=== PATIENT | female | born 1970 | race Caucasian/White ===

== ENCOUNTER 2022-07-20 09:14 | Outpatient (CLI) | payer OTHER, SELFPAY ==
[2022-07-20 15:13] LABS: Albumin* 4.9 g/dL (3.3-5.0); Chloride* 104 mmol/L (96-114); Sodium* 139 mmol/L (135-149)
[2022-07-20 15:14] LABS: Potassium* 4.3 mmol/L (3.6-5.1)
[2022-07-20 15:15] LABS: Cholesterol* 208 mg/dL (90-199); Creatinine* 0.7 mg/dL (0.5-1.5); Estimated Glomerular Filt Rate 105 ml/min
[2022-07-20 15:16] LABS: Alanine Aminotransferase* 23 U/L (4-35); Alkaline Phosphatase* 93 U/L (40-150); Aspartate Amino Transferase* 22 U/L (12-35); Bilirubin Total* 0.6 mg/dL (0.1-1.5); Blood Urea Nitrogen* 13 mg/dL (7-30); Calcium* 10.1 mg/dL (8.4-10.6); Carbon Dioxide* 24 mmol/L (20-32); Glucose* 100 mg/dL (60-115); Triglycerides* 146 mg/dL (40-149)
[2022-07-20 15:17] LABS: HDL Cholesterol* 66 mg/dL (>=50); LDL Cholesterol Calculated 113 mg/dL (<100)
== END 2022-07-20 09:15 | disposition home or self-care (01) ==
PROVIDERS: PCP Family Medicine; Visit Provider Nurse Practitioner Family
DX: Z13.220 Encounter for screening for lipoid disorders (principal); I10 Essential (primary) hypertension
CPT/HCPCS: 36415; 80053; 80061

== ENCOUNTER 2022-08-03 08:27 | Outpatient (CLI) | payer OTHER, SELFPAY ==
--- OUTSIDE RECORDS SUMMARY | 2022-08-03 08:29 | XMS_ITS | Clinical Summary ---
:1970 Author Organization [facility] [place] [address] Care Team Providers Name Role Phone Clinic, [facility] [place] Primary Care Provider [phone] Allergies Active Allergy Reactions Severity Noted Date Comments Lisinopril Rash 02/13/2016 A few days afte r starting med. Adhesive Tape Rash 09/10/2006 Medications Medication Sig Dispensed Refills Start Date End Date Status CLARITIN 10 MG TAB take 1 tablet 0 02/22/2007 Active (10mg) by oral route once daily DIPHENHYDRAMINE 50 MG take 1 capsule 0 02/22/2007 Active CAP (50mg) by oral route every 4-6 hours as needed cholecalciferol Take 1 capsule by 0 02/20/2016 Active (VITAMIN D) 1,000 unit mouth once daily. capsule fluticasone (50 mcg per Inhale 1 [place] 1 Bottle 11 08/03/2019 Active actuation) nasal into both solution nostrils once (FLONASE)Indications: daily. Hypertension, unspecified type metroNIDAZOLE Apply topically 45 g 3 05/08/2020 Active (METROGEL) 0.75 % to affected gelIndications: Rosacea area(s) 2 times daily. mometasone (Asmanex Inhale 1 Puff by 1 Each 0 05/21/2021 Active Twisthaler) 220 mcg/ mouth 2 times actuation (30) daily. inhalerIndications: Mild intermittent asthma without complication losartan (COZAAR) 100 Take 1 Tablet 30 Tablet 0 05/20/2021 Active mg tabletIndications: (100 mg) by mouth Hypertension, once daily. unspecified type albuterol HFA (PRO-AIR; INHALE 1 PUFF BY 54 g 0 1 Active VENTOLIN; PROVENTIL) 90 MOUTH EVERY 4 mcg/actuation HOURS IF NEEDED inhalerIndications: Asthma, unspecified asthma severity, unspecified whether complicated, unspecified whether persistent Active Problems Problem Noted Date OSWALDO I (cervical intraepithelial neoplasia I) 7 Overview: 02/2009 ASCUS/HPV positive 04/2009 [place]: OSWALDO 1 06/2012 ASCUS/HPV positive 07/2012 [place]: Suggestive of HPV 08/2013 NIL/HPV negative 11/2014 NIL/HPV positive 01/2016 ASCUS/HPV positive 01/2016 [place]: suggestive of OSWALDO 1 01/2017 ASCUS/HPV negative 02/2017 [place]: suggestive of OSWALDO 1 02/2018 Pap and HPV negative Plan: Repeat Pap/HPV testing in 3 year ( DUE 02/2021) Family hx colonic polyps 05/11/2016 Overview: Mom age 68 To start at 50 BMI 36.0-36.9,adult 03/05/2013 Overview: Formatting of this note is dif ferent from the original. Is using my fitness pal. Has lost 100 po unds again. Has been stable since 201602/17/2018 Wt Readings from Last 5 Encounters: 02/17/18 99.2 kg (218 lb 11.2 oz) 03/18/17 97.1 kg (214 lb) 02/15/17 98.9 kg (218 lb) 11/16/16 104.8 kg (231 lb) 08/03/16 115.2 kg (254 lb) Keeping calories under 2,000 for mainten ance on MY FITNESS PAL Exercise 2-3 days per week HTN (hypertension) 06/19/2007 Overview: Formatting of this note is dif ferent from the original. BP Readings from Last 5 Encounters: 11/01/18 138/94 03/14/18 116/72 02/17/18 132/74 03/18/17 132/86 02/15/17 116/80 taking medications as instructed, no me dication side effects noted, no TIA's, no chest pain on exertion, no dyspnea on exertion, no swelling of ankles.denies dizziness/headache/visual changes/cough/ort/shortness of breath/abdominal discomfort/edema SODIUM Date Value Ref Range Status 02/17/2018 140 135 - 145 mmol/L Final POTASSIUM Date Value Ref Range Status 02/17/2018 3.9 3.5 - 5.0 mmol/L Final CHLORIDE Date Value Ref Range Status 02/17/2018 108 98 - 110 mmol/L Final CO2,TOTAL Date Value Ref Range Status 02/17/2018 21 21 - 31 mmol/L Final ANION GAP Date Value Ref Range Status 02/17/2018 11 5 - 18 Final GLUCOSE Date Value Ref Range Status 02/17/2018 88 65 - 100 mg/dL Final BUN Date Value Ref Range Status 02/17/2018 17 8 - 25 mg/dL Final CREATININE Date Value Ref Range Status 02/17/2018 0.80 0.57 - 1.11 mg/dL Final BUN/CREAT RATIO Date Value Ref Range Status 02/17/2018 21 (H) 10 - 20 Final CALCIUM Date Value Ref Range Status 02/17/2018 9.7 8.5 - 10.5 mg/dL Final 11/01/2018 We tried lowering medications a nd she did have an increase. Will now add HYRDROCHLOROTHIAZIDE 12.5 mg daily and have her check a Potassium in [place] in 1 month. Asthma, moderate persistent 02/22/2007 Overview: Formatting of this note is dif ferent from the original. She thought she would be much better wit h weight loss. Not exercise related. She will have them when she is singing. Come on suddenly. The inhaler always helps. Dislikes her steroid inhaler. She did use it this winter and weaned off after thr ee weeks. They always used to be a coughing fit, and then could not get a breath. Now she will go to take a deep breath and nothing goes in. LIKES THE ASMANEX Neal etimes needs to use inhaler 2-3 times in a day . Triggers: Pollens somewhat Molds always Tree molds in spring and fa ll Summer and winter better. Extreme stress Somewhat upper respiratory infection Super cold a problem Needs albuterol 1 x in last month. Using asmanex once daily Asthma Data 03/14/2018 11/01/2018 DATE COMPLETED (Timeframe for the follow ing questions is the past 4 weeks) 03/14/2018 11/01/2018 1. Did you miss any work, school, or nor mal daily activities because of your asthma? 0-No 0-No 2. Did you wake up at night because of y our asthma? 0-No 0-No 3. Did you believe that your asthma was well controlled? 1-No 0-Yes 4. Do you use an inhaler for quick relie f from asthma symptoms? Yes Yes IF YES, what was the greatest number of puffs in 1 day you took with the inhaler? 1- 9 to 12 0- 1 to 4 ATAQ Score 2 0 In the past 12 months, number of asthma- related emergency department visits not requiring hospitalization? 0 0 In the past 12 months, number of hospita lizations requiring an overnight stay due to asthma? 0 0 Some recent data might be hidden 11/01/2018 will increase asmanex to 1 puff twice daily. Will want an update from her in a month. ATAQ 1 today Polycystic ovaries 02/22/2007 Allergic rhinitis, cause unspecified 02/22/2007 Overview: See asthma 11/01/2018 will add singulair Resolved Problems Problem Noted Date Resolved Date History of abnormal cervical Pap smear 09/25/2013 0 03/23/2017 Overview: 07/2012 Colposcopy neg ecc and hpv skinner e only on biopsy, Pap smear ascus positive HPV; 08/2013 Pap neg, HPV neg Plan: cotest 2016 Pap smear ascus, HPV positive Colpo: biopsy not quite cin1, ecc neg PL AN: cotest 1 year Unspecified essential hypertension 06/19/200703/18 Morbid obesity 02/22/2007 03/18/2009 Routine gynecological examination 02/22/20072018 Other disorders of iron metabolism 02/22/200707/19 Overview: needs screen, father has this. Inactive ICD-9 code replaced with correc t active ICD-9. Display name retained. Immunizations Name Administration Dates Next Due Hepatitis A (Adult) 05/11/2016, 07/06/2007 Hepatitis B (Adult) 05/11/2016, 07/06/2007, 12/14/1996 Influenza, IIV3 (Age >=3 years) 09/14/2013, 07/28/2012, 09/24 Influenza, IIV4 08/03/2019, 11/01/2018, 08/03/2016, 02/10/2016, 11/29/2014 MMR 08/28/1995 Td (Age >=7 Years) 10/15/1999 Tdap 02/15/2017, 02/22/2007 Family History Medical History Relation Name Comments Cancer Father skin/throat Diabetes Father Heart Disease Father ASHD Hypertension Father Other Father hemachromatosis; pt is neg for genetic mut Stroke Father Cancer Maternal Grandmother ovarian Cancer-breast Maternal Grandmother Asthma Mother Cancer Mother precancer in ova ry Hypertension Mother Melanoma Mother Heart Disease Paternal Grandfather ASHD Diabetes Paternal Grandmother Good Health Sister Melanoma Sister Relation Name Status Comments Father Maternal Grandmother Mother Paternal Grandfather Paternal Grandmother Sister Social History Tobacco Use Types Packs/Day Years Used Date Never Smoker Smokeless Tobacco: Never Used Comments: non smoker Alcohol Use Standard Drinks/Week Comments Yes 1.7 (1 standard drink = 0.6 oz pure occa sional 2-3 drinks 1-2 times per alcohol) month Alcohol Habits Answer Date Recorded How often do you have a drink Not asked containing alcohol? How many drinks containing alcohol Not asked do you have on a typical day when you are drinking? How often do you have six or more Not asked drinks on one occasion? Comment: occasional 2-3 drinks 1-2 times per 01/23 month Sex Assigned at Date Recorded Not on file Obstetrics History Para Term AB IAB SAB Ectopic Multiple Living Live Births 2 2 1 1 2 Date Outcome GA Total Labor/2nd/3rd Weight Sex Delivery Anes PTL Erica A 1 A5 Name Clin Labor Term Last Filed Vital Signs Vital Sign Reading Time Taken Comments Blood Pressure 132/90 05/29/2020 9:39 AM CDT Pulse 78 05/29/2020 9:39 AM CDT Temperature 36.7 ??C (98.1 ??F) 08/03/2019 8:17 AM CDT Respiratory Rate 16 01/05/2019 9:12 AM CDT Oxygen Saturation 96% 05/29/2020 9:39 AM CDT Inhaled Oxygen Concentration - - Weight 117.6 kg (259 lb 3.2 oz) 05/29/2020 9:39 AM CDT Height 170.5 cm (5' 7.13) 05/08/2020 8:41 AM CDT Body Mass Index 40.44 05/08/2020 8:41 AM CDT Plan of Treatment Health Maintenance Due Date Last Done Comments COVID-19 vaccine series (#1) 1970 Hepatitis C screening for age 0402/01/1989 18-79 Colonoscopy through age 75 02/02/2016 Mammogram for age 45-75 02/24/2018 02/24/2017, 02/10/2016 Depression screening for age 12+ 08/03/2020 08/03/2019, , 02/17/2018, Additional history exists Zoster (shingles) series for age 0402/01/2021 50+ (1 of 2) Pap test for age 21-65 03/14/2021 03/14/2018, 03/14/2018, 02/15/2017, Additional history exists BMI (ht and wt on same day) for 05/08/2021 05/08/2020, 07/24, age 18+ 01/05/2019, Additional history exists Influenza for age 50-64 06/24/2022 08/03/2019, 11/01/2018, 08/03/2016, Additional history exists Lipids for age 45-75 05/08/2025 05/08/2020, 08/03/2019, 11/01/2018, Additional history exists Tetanus booster 02/15/2027 02/15/2017, 02/22/2007, 10/15/1999 Tdap Completed 02/15/2017, 02/22/2007 Medical Devices Implanted Type Area It Security Consulting Director Device Shelf Model / Identifier Expiration Serial / Lot Date Sys Lap Band Std Access Port I - [id number] Stomach Inspire Medical [id number] / Implanted: Qty: 1 on 08/09/2007 at [facility] [employer] [facility] / [id number] Results Not on filefrom Last 3 Months Insurance Payer Benefit Plan / Subscriber ID Effective Dates Phone Addre ss Type Group [facility] [id number] 2019-Present [address] [facility] [place] [place] [address] (Home) [place] [phone] (Work) Pavithra Ramos Personal/Family Self 1970 [address] ([address]) [phone] (Work) [place] [phone] Advance Directives Latest Code Status on File Code Status Date Activated Date Inactivated Comments Full Code 08/09/2007 5:16 AM 08/09/2007 9:41 PM Care Teams Channel Manager Relationship Specialty Start Date End Date [facility] PCP - General 06/28/21 [address] [place] [id number]
[2022-08-03 13:46] LABS: Cholesterol* 194 mg/dL (90-199); HDL Cholesterol* 61 mg/dL (>=50); LDL Cholesterol Calculated 112 mg/dL (<100); Triglycerides* 103 mg/dL (40-149)
== END 2022-08-03 08:28 | disposition home or self-care (01) ==
LOC: KYNREF 08:27
PROVIDERS: PCP Family Medicine; Visit Provider Nurse Practitioner Family
DX: Z01.419 Encounter for gynecological examination (general) (routine) without abnormal findings (principal); Z13.6 Encounter for screening for cardiovascular disorders
CPT/HCPCS: 36415; 80061

== ENCOUNTER 2022-11-02 08:48 | Outpatient (CLI) | payer OTHER, SELFPAY ==
--- NOTE | 2022-11-02 09:15 | CRLHL7_ITS ---
For Patients: As a result of the Century Cures Act, medical imaging exams and procedure reports are released immediately into your electronic medical record. You may view this report before your referring provider. If you have questions, please contact your health care provider. BILATERAL SCREENING MAMMOGRAM WITH COMPUTER-AIDED DETECTION TECHNIQUE: CC and MLO views were obtained. These mammographic images have been obtained using full-field digital technique. These mammographic images were interpreted with the benefit of computer-aided detection. COMPARISON FILM: 02/24/17. FINDINGS: There are scattered areas of fibroglandular density IMPRESSION: There is no radiographic evidence for malignancy. ASSESSMENT: BI-RADS Category 2: Benign RECOMMENDATION: Routine screening mammogram in 1 year. A lay language report of this examination will be provided to the patient. Mc Szymanski M.D. Diagnostic Radiologist [email or web address] JT/Dictated by: Mc Szymanski MD @ 11/08/2022 10:54:00 AM (Electronically Signed)
== END 2022-11-02 08:49 | disposition home or self-care (01) ==
LOC: MAMMO 08:49
PROVIDERS: PCP Nurse Practitioner Family; Visit Provider Nurse Practitioner Family
DX: Z12.31 Encounter for screening mammogram for malignant neoplasm of breast (principal)
CPT/HCPCS: 77063; 77067

== ENCOUNTER 2023-04-11 14:35 | Outpatient (CLI) | payer OTHER, SELFPAY ==
--- NOTE | 2023-04-11 15:00 | CRLHL7_ITS ---
For Patients: As a result of the Century Cures Act, medical imaging exams and procedure reports are released immediately into your electronic medical record. You may view this report before your referring provider. If you have questions, please contact your health care provider. INDICATION: Left leg swelling TECHNIQUE: Ultrasound venous duplex lower left extremity. Compression venous exam was performed using villagran-scale, color Doppler, and spectral Doppler analysis. COMPARISON: None. FINDINGS: Sonographic imaging demonstrates the left common femoral, deep femoral, superficial femoral, popliteal, posterior tibial and greater saphenous and the contralateral right common femoral veins to be fully compressible with normal color Doppler blood flow. IMPRESSION: Normal left lower extremity venous ultrasound, no sign of deep venous thrombosis. Dictated by Martínez Ureña MD @ 04/11/2023 3:48:12 PM (Electronically Signed)
== END 2023-04-11 14:36 | disposition home or self-care (01) ==
PROVIDERS: PCP Nurse Practitioner Family; Visit Provider Nurse Practitioner Family
DX: M79.89 Other specified soft tissue disorders (principal)
CPT/HCPCS: 80048; 83540; 83550; 85025; 93971

== ENCOUNTER 2023-05-09 10:54 | Outpatient (CLI) | payer OTHER, SELFPAY | END 2023-05-09 10:55 | disposition home or self-care (01) | PROVIDERS: PCP Nurse Practitioner Family; Visit Provider Nurse Practitioner Family | DX: E87.6 Hypokalemia (principal); Z83.49 Family history of other endocrine, nutritional and metabolic diseases | CPT/HCPCS: 84132 ==

== ENCOUNTER 2023-08-15 08:31 | Outpatient (CLI) | payer OTHER, SELFPAY | END 2023-08-15 08:32 | disposition home or self-care (01) | PROVIDERS: PCP Nurse Practitioner Family; Visit Provider Nurse Practitioner Family | DX: Z00.00 Encounter for general adult medical examination without abnormal findings (principal); I10 Essential (primary) hypertension; Z13.0 Encounter for screening for diseases of the blood and blood-forming organs and certain disorders involving the immune mechanism; Z51.81 Encounter for therapeutic drug level monitoring | CPT/HCPCS: 80053; 85025 ==

== ENCOUNTER 2024-03-05 08:20 | Outpatient (CLI) | payer OTHER, SELFPAY ==
--- OUTSIDE RECORDS SUMMARY | 2024-03-08 12:46 | XMS_ITS | Clinical Summary ---
Author Name Unknown Organization [facility] Address [place], [place] [address] Care Team Providers Care Desolderer Name Role Phone Clinic, [facility] Pro vider Allergies Active Allergy Reactions Criticality Noted Date Comments Lisinopril Rash 02/13/2016 A few days after starting med. Adhesive Tape Rash 09/10/2006 Medications Medication Sig Dispensed Refills Start Date End Date Status CLARITIN 10 MG TAB take 1 tablet (10mg) by oral route once daily 0 02/22/2007 Active DIPHENHYDRAMINE 50 MG CAP take 1 capsule (50mg) by oral route every 4-6 hours as needed 0 02/22/2007 Active cholecalciferol (VITAMIN D) 1,000 unit capsule Take 1 capsule by mouth once daily. 0 02/20/2016 Active fluticasone (50 mcg per actuation) nasal solution (FLONASE)Indications: Hypertension, unspecified type Inhale 1 [place] into both nostrils once daily. 1 Bottle 11 08/03/2019 Active metroNIDAZOLE (METROGEL) 0.75 % gelIndications:Rosace a Apply topically to affected area(s) 2 times daily. 45 g 3 05/08/2020 Active mometasone (Asmanex Twisthaler) 220 mcg/ actuation (30) inhalerIndications:Mi ld intermittent asthma without complication Inhale 1 Puff by mouth 2 times daily. 1 Each 05/21/2021 Active losartan (COZAAR) 100 mg tabletIndications:Hyp ertension, unspecified type Take 1 Tablet (100 mg) by mouth once daily. 30 Tablet 05/20/2021 Active albuterol HFA (PRO-AIR; VENTOLIN; PROVENTIL) 90 mcg/actuation inhalerIndications:As thma, unspecified asthma severity, unspecified whether complicated, unspecified whether persistent INHALE 1 PUFF BY MOUTH EVERY 4 HOURS IF NEEDED 54 g 05/18/2021 Active Active Problems Problem Noted Date Diagnosed Date OSWALDO I (cervical intraepithelial neoplasia I) 10/2016 Overview: 02/2009 ASCUS/HPV positive 04/2009 [place]: OSWALDO 1 06/2012 ASCUS/HPV positive 07/2012 [place]: Suggestive of HPV 08/2013 NIL/HPV negative 11/2014 NIL/HPV positive 01/2016 ASCUS/HPV positive 01/2016 [place]: suggestive of OSWALDO 1 01/2017 ASCUS/HPV negative 02/2017 [place]: suggestive of OSWALDO 1 02/2018 Pap and HPV negative Plan: Repeat Pap/HPV testing in 3 year (DUE 02/2021) Family hx colonic polyps 05/11/2016 Overview: Mom age 68 To start at 50 BMI 36.0-36.9,adult 03/05/2013 Overview: Is using my fitness pal. Has lost 100 pounds again. Has been stable since 201602/17/2018 Wt Readings from Last 5 Encounters: 02/17/18 99.2 kg (218 lb 11.2 oz) 03/18/17 97.1 kg (214 lb) 02/15/17 98.9 kg (218 lb) 11/16/16 104.8 kg (231 lb) 08/03/16 115.2 kg (254 lb) Keeping calories under 2,000 for maintenance on [employer] Exercise 2-3 days per week HTN (hypertension) 06/19/2007 Overview: BP Readings from Last 5 Encounters: 11/01/18 138/94 03/14/18 116/72 02/17/18 132/74 03/18/17 132/86 02/15/17 116/80 taking medications as instructed, no medication side effects noted, no TIA's, no chest [...] mg/dL Final 11/01/2018 We tried lowering medications and she did have an increase. Will now add HYRDROCHLOROTHIAZIDE 12.5 mg daily and have her check a Potassium in [place] in 1 month. Asthma, moderate persistent 02/22/2007 Overview: She thought she would be much better with weight loss. Not exercise related. She will have them when she is singing. Come on suddenly. The inhaler always helps. Dislikes her steroid inhaler. She did use it this winter and weaned off after three weeks. They always used to be a coughing fit, and then could not get a breath. Now she will go to take a deep breath and nothing goes in. LIKES THE ASMANEX Sometimes needs to use inhaler 2-3 times in a day . Triggers: Pollens somewhat Molds always Tree molds in spring and fall Summer and winter better. Extreme stress Somewhat upper respiratory infection Super cold a problem Needs albuterol 1 x in last month. Using asmanex once daily Asthma Data 03/14/2018 11/01/2018 DATE COMPLETED (Timeframe for the following questions is the past 4 weeks) 03/14/2018 11/01/2018 1. Did you miss any work, school, or normal daily activities because of your asthma? 0-No 0-No 2. Did you wake up at night because of your asthma? 0-No 0-No 3. Did you believe that your asthma was well controlled? 1-No 0-Yes 4. Do you use an inhaler for quick relief from asthma symptoms? Yes Yes IF YES, what was the greatest number of puffs in 1 day you took with the inhaler? 1- 9 to 12 0- 1 to 4 ATAQ Score 2 0 In the past 12 months, number of asthma-related emergency department visits not requiring hospitalization? 0 0 In the past 12 months, number of hospitalizations requiring an overnight stay due to asthma? 0 0 Some recent data might be hidden 11/01/2018 will increase asmanex to 1 puff twice daily. Will want an update from her in a month. ATAQ 1 today Polycystic ovaries 02/22/2007 Allergic rhinitis, cause unspecified 02/22/2007 Overview: See asthma 11/01/2018 will add singulair Resolved Problems Problem Noted Date Diagnosed Date Resolved Date History of abnormal cervical Pap smear 09/25/2013 03/23/2017 Overview: 07/2012 Colposcopy neg ecc and hpv change only on biopsy, Pap smear ascus positive HPV; 08/2013 Pap neg, HPV neg Plan: cotest 2015 Pap smear ascus, HPV positive Colpo: biopsy not quite cin1, ecc neg PLAN: cotest 1 year Unspecified essential hypertension 06/19/2007 03/18/2009 Morbid obesity 02/22/2007 03/18/2009 Routine gynecological examination 02/22/2007 11/01/2018 Other disorders of iron metabolism 02/22/2007 07/19/2007 Overview: needs screen, father has this. Inactive ICD-9 code replaced with correct active ICD-9. Display name retained. Immunizations Name Administration Dates Next Due Hepatitis A (Adult) 05/11/2016,07/06/2007 Hepatitis B (Adult) 05/11/2016,07/06/2007,1996 Influenza, IIV3 (Age >=3 years) 09/14/2013,07/28,10/15/1999 Influenza, IIV4 08/03/2019, 9,08/03/2016,02/10/2016, 11/29/2014 MMR 08/28/1995 Td (Age >=7 Years) 10/15/1999 Tdap 02/15/2017,02/22/2007 Family History Medical History Relation Name Comments Cancer Father skin/throat Diabetes Father Heart Disease Father ASHD Hypertension Father Other Father hemachromatosis ; pt is neg for genetic mut Stroke Father Cancer Maternal Grandmother ovarian Cancer-breast Maternal Grandmother Asthma Mother Cancer Mother precancer in ov butch Hypertension Mother Melanoma Mother Heart Disease Paternal Grandfather ASHD Diabetes Paternal Grandmother Good Health Sister Melanoma Sister Relation Name Status Comments Father Maternal Grandmother Mother Paternal Grandfather Paternal Grandmother Sister Social History Tobacco Use Types Packs/Day Years Used Date Smoking Tobacco: Never Smokeless Tobacco: Never Comments:non smoker Alcohol Use Standard Drinks/Week Comments Yes 1.7 (1 standard drin k = 0.6 oz pure alcohol) occasional 2-3 drinks 1-2 times per month PHQ-2 Answer Date Recorded PHQ-2 Score 0 08/03/2019 Social Connections Answer Date Recorded Frequency of Communication with Friends and Fami ly Not on file 10/24/2021 Financial Resource Strain Answer Date R ecorded Difficulty of Paying Living Expenses Not on file 10/24/2021 Difficulty of Paying Living Expenses Not on file 10/24/2021 Sex and Gender Information Value Date Recorded Sex Assigned at Not on file Gender Identity Not on file Sexual Orientation Not on file Obstetrics History Para Term AB IAB SAB Ectopic Multiple Livin g Live Births 2 2 1 1 2 Date Outcome GA Total Labor Labor/2nd/3rd Weight Sex Delivery Anes PTL Erica A1 A5 Name Cl in Term Last Filed Vital Signs Vital Sign Reading Time Taken Comments Blood Pressure 132/90 05/29/2020 9:39 AM CDT Pulse 78 05/29/2020 9:39 AM CDT Temperature 36.7 ??C (98.1 ??F) 08/03/2019 8:17 AM CD T Respiratory Rate 16 01/05/2019 9:12 AM CDT Oxygen Saturation 96% 05/29/2020 9:39 AM CDT Inhaled Oxygen Concentration - - Weight 117.6 kg (259 lb 3.2 oz) 05/29/2020 9:39 AM CDT Height 170.5 cm (5' 7.13) 05/08/2020 8:41 AM CD T Body Mass Index 40.44 05/08/2020 8:41 AM CDT Plan of Treatment Health Maintenance Due Date Last Done Comments HIV for age 15-65 1986 Hepatitis C screening for age 18-79 1989 Colonoscopy through age 75 02/02/2016 Mammogram for age 45-75 02/24/2018 02/24/2017, 02/09 Depression screening for age 12+ 08/03/2020 08/03/2019, 02/17/2018, 02/17/2018, Additional history exists Zoster (shingles) series for age 50+ (1 of 2) 2021 BMI (ht and wt on same day) for age 18+ 05/08/2021 05/08/2020, 08/03/2019, 01/05/2019, Additional history exists COVID-19 vaccine series ( season) 2023 Influenza for age 50-64 06/24/2024 08/03/20 19, 11/01/2018, 08/03/2016, Additional history exists Lipids for age 45-75 05/08/2025 05/08/2020, 08/03/2019, 11/01/2018, Additional history exists Pap test for age 21-65 08/15/2026 , 08/15/2023, 03/14/2018, Additional history exists Tetanus booster 02/15/2027 02/15/2017, 11/2006, 10/15/1999 Tdap Completed 02/15/2017, 02/22/2007 Pneumococcal series for age 6-64 Aged Out No longer eligible based on patient's age to complete this topic Medical Devices Implanted Type Area Managing Director Device Identifier Shelf Expiration Date Model / Serial / Lot Sys Lap Band Std Access Port I - [id number] Implanted:Qty: 1 on 08/09/2007 at [facility] [employer] [id number] / / [id number] Procedures Procedure Name Priority Date/Time Associated Diagnosis Comments HPV THIN PREP Routine 08/15/2023 8:46 AM CDT LIPID PANEL W REFLEX MEASURED LDL Routine 05/08/2020 9:35 AM CDT Hypertension, unspecified type XR MAMMO BILAT SCREENING Routine 02/24/2017 10:17 AM CDT History of mammography, screening from Last 3 Months or Most Recently Relevant to Health Maintenance Results * HPV HIGH RISK (08/15/2023 8:46 AM CDT) TYPE 16 Negative Negative 08/18/2023 11:46 AM CDT [facility] TYPE 18 Negative Negative 08/18/2023 11:46 AM CDT [facility] OTHER HIGH RISK TYPES Negative Negative 08/18/2023 11:46 AM CDT [facility] Other (Cervical) 08/15/2023 8:46 AM CDT 08/16/2023 12:54 PM CDT Narrative [facility] - 08/18/2023 11:46 AM CDT HPV types 16, 18, 31, 33, 35, 39, 45, 51, 52, 56, 58, 59, 66 and 68 DNA were undetectable or below the pre-set threshold. Methodology: Indu Irving 4800 HPV Test Shannan Owen NP MICROBIOLOGY [facility] [address] [place] [address], * LIPID PANEL W REFLEX MEASURED LDL (05/08/2020 9:35 AM CDT) CHOLESTEROL,TOTAL 186 100 - 199 mg/dL 05/08/2020 10:09 AM CDT [facility] TRIGLYCERIDES 85 <150 mg/dL 05/08/2020 10:09 AM CDT [facility] HDL CHOLESTEROL 60 >40 mg/dL 0 10:09 AM CDT [facility] NON-HDL CHOLESTEROL 126 <145 mg/dl 05/08/2020 10:09 AM CDT [facility] CHOL/HDL RATIO 3.10 <4.50 05/08/2020 10:09 AM CDT [facility] LDL CHOLESTEROL 109 <=130 mg/dL 05/08/2020 10:09 AM CDT [facility] PROVIDER ORDERED STATUS RANDOM 05/08/2020 10:09 AM CDT [facility] Blood BLOOD SPECIMEN / Unknown Venipuncture / Unknown 05/08/2020 9:35 AM CDT 05/08/2020 9:38 AM CDT Lilian Stark MD CHEMISTRY [facility] [address] [place] [address] * XR MAMMO BILAT SCREENING (02/24/2017 10:17 AM CDT) Anatomical Region Laterality Modality BREASTS, Breast Left, Breast Right Bilateral Mammography Impressions 02/24/2017 11:12 AM CDT ??There is no radiographic evidence for malignancy. ??Recommend annual mammograms. A lay language report of this examination will be provided to the patient. MAMMOGRAM ASSESSMENT: ??ACR 1 Negative Narrative 02/24/2017 11:12 AM CDT XR MAMMO BILAT SCREENING [[id number]] CLINICAL HISTORY: ??This is an asymptomatic 47 y.o. patient. INDICATION FOR EXAM: Mammogram Screening. TECHNIQUE: CC & MLO views were obtained. ??This digital study was evaluated with the assistance of Computer-Aided Detection. COMPARISON FILM: Yes 02/10/16 [facility] FINDINGS: ??Mammographically, the breast tissue has scattered fibroglandular densities. ??There are no dominant masses, suspicious micro calcifications or areas of architectural distortion. Beata Morrison MD MAMMO from Last 3 Months or Most Recently Relevant to Health Maintenance Advance Directives * Full Code (Latest Code Status on File) Date Activated Date Inactivated Comments 08/09/2007 5:16 AM 08/09/2007 9:41 PM Care Teams Desolderer Relationship Specialty Start Date End Date [address] [place] [address] PCP - General 06/28/21
== END 2024-03-05 08:21 | disposition home or self-care (01) ==
LOC: NFLDREF 03-08 12:45
PROVIDERS: PCP Nurse Practitioner Family; Referring Provider Nurse Practitioner Family; Visit Provider Nurse Practitioner Family
DX: E87.6 Hypokalemia (principal)
CPT/HCPCS: 84132

== ENCOUNTER 2024-10-02 10:59 | Outpatient (CLI) | payer OTHER, SELFPAY ==
--- OUTSIDE RECORDS SUMMARY | 2024-10-02 11:01 | XMS_ITS | Clinical Summary ---
Author Organization [facility] Address [place], [place] [address] Care Team Providers Care Civil Engineering Manager Name Role Phone Clinic, [facility] Primary Care Pro vider Allergies Active Allergy Reactions Criticality Noted Date Comments Lisinopril Rash 02/13/2016 A few days after starting med. Adhesive Tape Rash 09/10/2006 Medications CLARITIN 10 MG TAB take 1 tablet (10mg) by oral route once daily 0 7 Active DIPHENHYDRAMINE 50 MG CAP take 1 capsule (50mg) by oral route every 4-6 hours as needed 0 7 Active cholecalciferol (VITAMIN D) 1,000 unit capsule Take 1 capsule by mouth once daily. 0 6 Active fluticasone (50 mcg per actuation) nasal solution (FLONASE)Indicati ons:Hypertension, unspecified type Inhale 1 [place] into both nostrils once daily. 1 Bottle 11 9 Active metroNIDAZOLE (METROGEL) 0.75 % gelIndications:Ro sacea Apply topically to affected area(s) 2 times daily. 45 g 3 0 Active mometasone (Asmanex Twisthaler) 220 mcg/ actuation (30) inhalerIndication s:Mild intermittent asthma without complication Inhale 1 Puff by mouth 2 times daily. 1 Each 1 Active losartan (COZAAR) 100 mg tabletIndications :Hypertension, unspecified type Take 1 Tablet (100 mg) by mouth once daily. 30 Tablet 1 Active albuterol HFA (PRO-AIR; VENTOLIN; PROVENTIL) 90 mcg/actuation inhalerIndication s:Asthma, unspecified asthma severity, unspecified whether complicated, unspecified whether persistent INHALE 1 PUFF BY MOUTH EVERY 4 HOURS IF NEEDED 54 g 1 Active Active Problems Problem Noted Date Diagnosed Date OSWALDO I (cervical intraepithelial neoplasia I) 10/2016 Overview (11/01/2018): 02/2009 ASCUS/HPV positive 04/2009 [place]: OSWALDO 1 06/2012 ASCUS/HPV positive 07/2012 [place]: Suggestive of HPV 08/2013 NIL/HPV negative 11/2014 NIL/HPV positive 01/2016 ASCUS/HPV positive 01/2016 [place]: suggestive of OSWALDO 1 01/2017 ASCUS/HPV negative 02/2017 [place]: suggestive of OSWALDO 1 02/2018 Pap and HPV negative Plan: Repeat Pap/HPV testing in 3 year (DUE 02/2021) Family hx colonic polyps 05/11/2016 Overview (08/03/2016): Mom age 68 To start at 50 BMI 36.0-36.9,adult 03/05/2013 Overview (02/17/2018): Is using my fitness pal. Has lost [...] 2-3 days per week HTN (hypertension) 06/19/2007 Overview (11/01/2018): BP Readings from Last 5 Encounters: 11/01/18 [...] and have her check a Potassium in [place] in 1 month. Asthma, moderate persistent 02/22/2007 Overview (11/01/2018): She thought she would be much better [...] ovaries 02/22/2007 Allergic rhinitis, cause unspecified 02/22/2007 Overview (11/01/2018): See asthma 11/01/2018 will add singulair Resolved Problems Problem Noted Date Diagnosed Date Resolved Date History of abnormal cervical Pap smear 09/25/2013 03/23/2017 Overview (05/11/2016): 07/2012 Colposcopy neg ecc and hpv change only on biopsy, Pap smear ascus positive HPV; 08/2013 Pap neg, HPV neg Plan: cotest 2015 Pap smear ascus, HPV positive Colpo: biopsy not quite cin1, ecc neg PLAN: cotest 1 year Unspecified essential hypertension 06/19/2007 03/18/2009 Morbid obesity 02/22/2007 03/18/2009 Routine gynecological examination 02/22/2007 11/01/2018 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 Gender Identity Not on file Sexual Orientation Not on file Occupation Industry Job Start Date Job End Date Home Not on file Not on file Not on file Obstetrics History Para Term AB IAB SAB Ectopic Multiple Livin g Live Births 2 2 1 1 2 Date Outcome GA Total Labor Labor/2nd/3rd Weight Sex Type Anes PTL Erica A1 A5 Name Clin Term Last Filed Vital Signs Vital Sign Reading Time Taken Comments Blood Pressure 132/90 05/29/2020 9:39 AM CDT Pulse 78 05/29/2020 9:39 AM CDT Temperature 36.7 C (98.1 F) 08/03/2019 8:17 AM CDT Respiratory Rate 16 [...] 01/05/2019, Additional history exists COVID-19 vaccine series (2023- season) 2024 Influenza for age 50-64 06/24/2024 08/03/20 19, 11/01/2018, 08/03/2016, Additional history exists Lipids for age 45-75 05/08/2025 05/08/2020, 08/03/2019, 11/01/2018, Additional history exists Pap test for age 21-65 08/15/2026 3, 08/15/2023, 03/14/2018, Additional history exists Tetanus booster 02/15/2027 02/15/2017, 11/2006, 10/15/1999 Tdap Completed 02/15/2017, 02/22/2007 Pneumococcal series for age 6-64 Aged Out No longer eligible based on patient's age to complete this topic Medical Devices Implanted Type Area Inspector Wire Products Device Identifier Shelf Expiration Date Model / Serial / Lot Sys Lap Band Std Access Port I - [id number] Implanted:Qty: 1 on 08/09/2007 at [facility] [id number] / / [id number] Procedures Procedure Name Priority Date/Time Associated Diagnosis Comments HPV HIGH RISK Routine 08/15/2023 8:46 AM CDT LIPID PANEL W REFLEX MEASURED LDL Routine 05/08/2020 9:35 AM CDT Hypertension, unspecified type XR MAMMO BILAT SCREENING Routine 02/24/2017 10:17 AM CDT History of mammography, screening from Last 3 Months or Most Recently Relevant to Health Maintenance Results * HPV HIGH RISK (08/15/2023 8:46 AM CDT) TYPE 16 Negative Negative 08/18/2023 11:46 AM CDT [facility] TYPE 18 Negative Negative 08/18/2023 11:46 AM CDT [facility] OTHER HIGH RISK TYPES Negative Negative 08/18/2023 11:46 AM CDT [facility] Other (Cervical) 08/15/2023 8:46 AM CDT 08/16/2023 12:54 PM CDT Narrative [facility] - 08/18/2023 11:46 AM CDT HPV types 16, 18, 31, 33, 35, 39, 45, 51, 52, 56, 58, 59, 66 and 68 DNA were undetectable or below the pre-set threshold. Methodology: Indu Irving 4800 HPV Test us Shannan Owen NP MICROBIOLOGY Final Resu lt [facility] [address] [place] [address], * LIPID PANEL W REFLEX MEASURED LDL (05/08/2020 9:35 AM CDT) CHOLESTEROL,TOTAL 186 100 - 199 mg/dL 05/08/2020 10:09 AM CDT [facility] TRIGLYCERIDES 85 <150 mg/dL 05/08/2020 10:09 AM CDT [facility] HDL CHOLESTEROL 60 >40 mg/dL 0 10:09 AM CDT [facility] NON-HDL CHOLESTEROL 126 <145 mg/dl 05/08/2020 10:09 AM CDT [facility] CHOL/HDL RATIO 3.10 <4.50 05/08/2020 10:09 AM CDT [facility] LDL CHOLESTEROL 109 <=130 mg/dL 05/08/2020 10:09 AM CDT [facility] PROVIDER ORDERED STATUS RANDOM 05/08/2020 10:09 AM CDT [facility] Blood BLOOD SPECIMEN / Unknown Venipuncture / Unknown 05/08/2020 9:35 AM CDT 05/08/2020 9:38 AM CDT us Lilian Stark MD CHEMISTRY Final Re sult Performing Organization Address City/State/[facility] [place] [address] * XR MAMMO BILAT SCREENING (02/24/2017 10:17 AM CDT) Anatomical Region Laterality Modality BREASTS, Breast Left, Breast Right Bilateral Mammography Impressions 02/24/2017 11:12 AM CDT There is no radiographic evidence for malignancy. Recommend annual mammograms. A lay language report of this examination will be provided to the patient. MAMMOGRAM ASSESSMENT: ACR 1 Negative Narrative 02/24/2017 11:12 AM CDT XR MAMMO BILAT SCREENING [[id number]] CLINICAL HISTORY: This is an asymptomatic 47 y.o. patient. INDICATION FOR EXAM: Mammogram Screening. TECHNIQUE: CC & MLO views were obtained. This digital study was evaluated with the assistance of Computer-Aided Detection. COMPARISON FILM: Yes 02/10/16 [facility] FINDINGS: Mammographically, the breast tissue has scattered fibroglandular densities. There are no dominant masses, suspicious micro calcifications or areas of architectural distortion. us Beata Morrison MD MAMMO Final Resul t from Last 3 Months or Most Recently Relevant to Health Maintenance Insurance [facility] [address] [id number] [place] [id number] Advance Directives * Full Code (Latest Code Status on File) Date Activated Date Inactivated Comments 08/09/2007 5:16 AM 08/09/2007 9:41 PM Care Teams Civil Engineering Manager Relationship Specialty Start Date End Date Clinic, [address] [address] PCP - General 06/28/21
== END 2024-10-02 11:00 | disposition home or self-care (01) ==
PROVIDERS: PCP Nurse Practitioner Family; Visit Provider Nurse Practitioner Family
DX: I10 Essential (primary) hypertension (principal); E66.9 Obesity, unspecified; Z13.0 Encounter for screening for diseases of the blood and blood-forming organs and certain disorders involving the immune mechanism; Z13.6 Encounter for screening for cardiovascular disorders; Z83.49 Family history of other endocrine, nutritional and metabolic diseases
CPT/HCPCS: 80053; 80061; 83540; 85025

== ENCOUNTER 2024-12-07 13:56 | Outpatient (CLI) | payer OTHER, SELFPAY | END 2024-12-07 13:57 | disposition home or self-care (01) | PROVIDERS: PCP Nurse Practitioner Family; Visit Provider Nurse Practitioner Family | DX: E87.6 Hypokalemia (principal) | CPT/HCPCS: 84132 ==

== ENCOUNTER 2025-03-11 08:57 | Outpatient (CLI) | payer OTHER, SELFPAY ==
--- NOTE | 2025-03-11 09:15 | CRLHL7_ITS ---
For Patients: As a result of the Century Cures Act, medical imaging exams and procedure reports are released immediately into your electronic medical record. You may view this report before your referring provider. If you have questions, please contact your health care provider. INDICATION: BILATERAL SCREENING MAMMOGRAM, ASYMPTOMATIC 55 Y/O FEMALE COMPARISON: 11/02/2022, 02/24/2017 TECHNIQUE: Digital mammogram in CC and MLO projections including computer-aided detection (CAD) and tomosynthesis. BREAST COMPOSITION: The breasts are almost entirely fatty. FINDINGS: No suspicious findings. ASSESSMENT: BI-RADS 2 Benign RECOMMENDATION: Annual screening mammogram. A lay language report of this examination will be provided to the patient. Dictated by: Mc Szymanski MD @ 03/11/2025 11:25:05 (Electronically Signed)
== END 2025-03-11 08:58 | disposition home or self-care (01) ==
LOC: MAMMO 08:58
PROVIDERS: PCP Nurse Practitioner Family; Visit Provider Nurse Practitioner Family
DX: Z12.31 Encounter for screening mammogram for malignant neoplasm of breast (principal)
CPT/HCPCS: 77063; 77067

== ENCOUNTER 2025-06-10 05:37 | Outpatient (CLI) | payer OTHER, SELFPAY | END 2025-06-10 05:38 | disposition home or self-care (01) | LOC: KYNREF 08:29 | PROVIDERS: PCP Nurse Practitioner Family; Visit Provider Nurse Practitioner Family | DX: E87.6 Hypokalemia (principal) | CPT/HCPCS: 84132 ==